=== PATIENT | male | born 1975 | race Caucasian/White ===

== ENCOUNTER 2021-01-15 10:58 | Emergency (ER) | payer BC, OTHER ==
[~2021-01-15] VITALS: Ht 180.3 cm; Wt 90.7 kg
[2021-01-15] MEDS ORDERED: DOXYCYCLINE MO100 MG ORAL (11:19)
--- NOTE | 2021-01-15 11:19 | Emergency Room Report ---
History of Present Illness General Chief Complaint: Male Urogenital Problems Source: Patient Present Illness HPI 45-year-old male presents with dysuria for the past week, patient had unprotected sex 2 weeks ago, endorses some burning pain severity is mild, intermittent no fevers no chills patient presents for treatment for STDs Allergies: Coded Allergies: No Known Allergies (Unverified , 01/15/21) COVID-19 Screening Contact w/high risk pt: No Experienced COVID-19 symptoms?: No COVID-19 Testing performed RELIGION DEPARTMENT CHAIR: No Patient History Past Medical History: see triage record Social History: Reports: drug use - Marijuana Reviewed Nursing Documentation: PMH: Agreed; PSxH: Agreed Nursing Documentation-PMH Past Medical History: No Stated History Review of Systems All Other Systems: negative except mentioned in HPI Physical Exam Vital Signs Date Time Temp Pulse Resp B/P (MAP) Pulse Ox O2 Delivery O2 Flow Rate FiO2 01/15/21 11:07 97.5 68 18 134/86 (102) 98 General Appearance: well appearing, no apparent distress Head: normocephalic, atraumatic ENT: hearing grossly normal, normal voice Neck: full range of motion, supple Respiratory: no respiratory distress, speaking full sentences Genitourinary: other - [employer] Paz no discharge from the penis, no pain testicular leak, cremasteric reflex intact unremarkable exam Neurologic: alert, normal gait Psychiatric: mood/affect normal Skin: no rash Medical Decision Making Diagnostic Impression: Primary Impression: Sexually transmitted disease (STD) ER Course 45-year-old male presents with possible STD exposure will treat patient with ceftriaxone 500 mg, Zithromax 1 g will provide patient with doxycycline as an outpatient disposition home with return precautions follow-up with PCP Last Vital Signs Date Time Temp Pulse Resp B/P (MAP) Pulse Ox O2 Delivery O2 Flow Rate FiO2 01/15/21 11:07 97.5 68 18 134/86 (102) 98 Disposition: HOME, SELF-CARE Condition: Stable Scripts Doxycycline Monohydrate* (DOXYCYCLINE MONOHYDRATE*) 100 Mg Capsule 100 MG ORAL Q12H for 14 Days, #28 CAP 0 Refills Prov: Emmanuel Sneed MD 01/15/21 Referrals: [facility] Dirk Patel [facility] Patient Instructions: Sexually Transmitted Disease, [id number] Additional Instructions: The patient was provided with discharge instructions, notified to follow-up with a primary care doctor and or specialist in the next 24-48 hours, and to return to the ED if they have worsening of their symptoms. Please note that this report is being documented using [employer] technology. This can lead to erroneous entry secondary to incorrect interpretation by the dictating instrument. Emmanuel Sneed MD Jan 15, 2021 11:19
[2021-01-15] MEDS: Lidocaine 1% MPF 10mg/ml 5ml INJ ONE (11:25)
[2021-01-15] MEDS: Azithromycin 250mg tab ORAL ONE (11:25)
[2021-01-15] MEDS: cefTRIAXone 500mg Inj IM ONE (11:26)
[2021-01-15 11:33] VITALS: BP 134/86
[2021-01-15 11:34] VITALS: BP 134/86
--- NOTE | 2021-01-15 11:36 | NUR ---
discharged home with instruction and rx follow up with pmd
== END 2021-01-15 11:37 | disposition home or self-care (01) ==
LOC: EMR 11:21
DX: A64 Unspecified sexually transmitted disease (principal); F12.90 Cannabis use, unspecified, uncomplicated
CPT/HCPCS: 96372; 99283; J0696